=== PATIENT | male | born 1940 | race Caucasian/White ===

== ENCOUNTER 2016-05-04 12:19 | Emergency (ER) | payer OTHER, BC ==
[~2016-05-04] VITALS: Ht 172.7 cm; Wt 65.8 kg
--- NOTE | ~2016-05-04 | EKG ---
[address] [address] ELECTROCARDIOGRAM REPORT Name: SEMAUS ANG Room #: DEP COOPER Tang#: [id number] Admission: 05/04/16 Attend Phys: Discharge: 05/04/16 Date of : 44 Report #: [id number] THIS REPORT FOR: //name// [facility] ED Test Date: 2016-05-04 Test Time: 12:45:57 Pat Name: SEAMUS ANG Department: Room: Gender: Inbound Sales Consultant: [facility] : 1940 Requested By: Mark Klein Order Number: [id number] MD: Gutierrez Coreas Measurements Intervals [place] Rate: 58 P: 38 GA: 149 QRS: 25 QRSD: 101 T: 44 QT: 407 QTc: 400 Interpretive Statements Sinus rhythm No previous ECG available for comparison Electronically Signed On 05-04-2016 16:48:48 CHECKER AND PACKER by Gutierrez Coreas [email or web address] <ELECTRONICALLY SIGNED> By: Gutierrez Coreas MD 05/04/16 1648 1245 1245 Gutierrez Coreas MD /PARIS
[2016-05-04] MEDS ORDERED: LOW DOSE ASPIRI81 M1 PO (12:27)
[2016-05-04 12:54] LABS: ABSOLUTE NEUTROPHILS 6.5 thou/uL (1.4-8.2); BASOPHILS 0.8 % (0.0-2.0); EOSINOPHILS 1.9 % (0.0-3.0); HEMOGLOBIN 14.5 gm/dL (14.0-18.0); MCH 33.3 pg (26.0-34.0); MCHC 34.6 % (28.0-37.0); MCV 96.3 fL (80.0-100.0); MONOCYTES 6.8 % (1.0-8.0); PLATELET COUNT 190 thou/uL (150-400); POLYS 65.5 % (36.0-66.0); RBC 4.37 mil/uL (4.50-6.00); RDW 12.1 % (10.5-14.5); WBC 9.9 thou/uL (4.0-11.0)
[2016-05-04 12:56] LABS: MANUAL DIFF NO
[2016-05-04 13:05] LABS: ANION GAP 7 mmol/L (7-16); BUN 11 mg/dL (7-18); CALCIUM 9.2 mg/dL (8.5-10.1); CHLORIDE 103 mmol/L (98-107); CO2 30 mmol/L (21-32); CREATININE 1.1 mg/dL (0.6-1.3); GLUCOSE 122 mg/dL (70-99); POTASSIUM 4.1 mmol/L (3.5-5.1); SODIUM 140 mmol/L (136-145)
[2016-05-04 13:27] LABS: ALKALINE PHOSPHATASE 51 U/L (46-116); CK-MB MASS 4.3 ng/mL (<0.5-3.6); MAGNESIUM 2.1 mg/dL (1.8-2.4); NT-PRO BRAIN NAT PEPTIDE 36 pg/mL (<300); SGOT 18 U/L (15-37); SGPT 24 U/L (30-65); TOTAL BILIRUBIN 0.5 mg/dL (<0.1-1.0); TROPONIN-I < 0.04 ng/mL (<0.04-0.07)
[2016-05-04 14:17] VITALS: BP 142/76
== END 2016-05-04 14:17 | disposition home or self-care (01) ==
LOC: ER 12:19
PROVIDERS: Emergency Medicine
DX: S61.212A Laceration without foreign body of right middle finger without damage to nail, initial encounter (principal); R55 Syncope and collapse; Z88.2 Allergy status to sulfonamides; W17.89XA Other fall from one level to another, initial encounter; Y93.9 Activity, unspecified; Y92.9 Unspecified place or not applicable; Y99.9 Unspecified external cause status

== ENCOUNTER 2019-10-15 12:36 | Emergency (ER) | payer OTHER, BC ==
[~2019-10-15] VITALS: Ht 170.2 cm; Wt 70.3 kg
[~2019-10-15 12:36] MED LIST: LOW DOSE ASPIRI81 M1 PO
[2019-10-15 12:56] LABS: ABSOLUTE NEUTROPHILS 5.9 thou/uL (1.4-8.2); BASOPHILS 0.7 % (0.0-2.0); HEMATOCRIT 39.5 % (42.0-52.0); HEMOGLOBIN 13.6 gm/dL (14.0-18.0); LYMPHOCYTES 35.5 % (24.0-44.0); MCH 33.9 pg (26.0-34.0); MCHC 34.4 g/dL (28.0-37.0); MCV 98.5 fL (80.0-100.0); MONOCYTES 7.1 % (1.0-8.0); PLATELET COUNT 199 thou/uL (150-400); POLYS 53.7 % (36.0-66.0); RBC 4.01 mil/uL (4.50-6.00); RDW 12.7 % (10.5-14.5); WBC 11.1 thou/uL (4.0-11.0)
[2019-10-15 13:05] LABS: CALCIUM 9.3 mg/dL (8.5-10.1); POTASSIUM 3.8 mmol/L (3.5-5.1)
[2019-10-15 13:19] LABS: ALBUMIN 3.6 g/dL (3.4-5.0); TOTAL BILIRUBIN 0.4 mg/dL (0.2-1.0); TOTAL PROTEIN 6.4 g/dL (6.4-8.2)
[2019-10-15] MEDS ORDERED: ARICEPT10 MG PO (13:23)
[2019-10-15] MEDS ORDERED: RISPERIDONE2 MG PO (13:23)
[2019-10-15 13:32] LABS: URINE BILIRUBIN NEGATIVE (Negative); URINE BLOOD NEGATIVE (Negative); URINE CLARITY CLEAR; URINE COLOR YELLOW; URINE GLUCOSE-RANDOM* NEGATIVE (Negative); URINE KETONES NEGATIVE (Negative); URINE LEUKOCYTES-REFLEX NEGATIVE (Negative); URINE NITRITE-REFLEX NEGATIVE (Negative); URINE PROTEIN (DIPSTICK) NEGATIVE (Negative); URINE UROBILINOGEN 0.2 E.U./dl (0.2-1.0)
[2019-10-15 13:33] LABS: TROPONIN-I 0.06 ng/mL (<0.06)
[2019-10-15 15:40] VITALS: BP 121/62
--- NOTE | 2019-10-15 15:47 | EKG ---
[facility] [place] [address] ELECTROCARDIOGRAM REPORT Name: SEAMUS ANG Room #: DEP [facility]#: [id number] Admission: 10/15/19 Attend Phys: Discharge: 10/15/19 Date of : 44 Report #: [id number] THIS REPORT FOR: cc: FAM - Family physician unknown FAM - Family physician unknown Gutierrez Coreas MD ~ THIS REPORT FOR: //name// [facility] ED Test Date: 2019-10-15 Test Time: 12:48:08 Pat Name: SEMAUS ANG Department: Room: Gender: Car Seat Coverer: : 1940 Requested By: Radha Phillips Order Number: [id number] MD: Gutierrez Coreas Measurements Intervals [place] Rate: 75 P: 35 [place]: 140 QRS: 2 QRSD: 94 T: 40 QT: 381 QTc: 426 Interpretive Statements Sinus rhythm Low voltage, precordial leads Compared to ECG 05/04/2016 12:45:57 Low QRS voltage now present Electronically Signed On 10-15-2019 15:46:47 CDT by Gutierrez Coreas [email or web address] <ELECTRONICALLY SIGNED> By: Gutierrez Coreas MD 10/15/19 1546 1248 1248 Gutierrez Coreas MD /EPI
== END 2019-10-15 15:43 | disposition home or self-care (01) ==
LOC: ER 12:36
PROVIDERS: Physician Assistant
DX: I95.9 Hypotension, unspecified (principal); F03.90 Unspecified dementia, unspecified severity, without behavioral disturbance, psychotic disturbance, mood disturbance, and anxiety; Z79.82 Long term (current) use of aspirin; Z79.899 Other long term (current) drug therapy; Z88.2 Allergy status to sulfonamides

== ENCOUNTER 2019-10-25 18:13 | Emergency (ER) | payer OTHER, BC ==
[~2019-10-25] VITALS: Ht 175.3 cm; Wt 72.6 kg
[~2019-10-25 18:13] MED LIST changes: +ARICEPT10 MG PO; +RISPERIDONE2 MG PO
[2019-10-25 18:43] LABS: ABSOLUTE NEUTROPHILS 15.2 thou/uL (1.4-8.2); BASOPHILS 0.1 % (0.0-2.0); EOSINOPHILS 0.3 % (0.0-3.0); HEMATOCRIT 38.9 % (42.0-52.0); HEMOGLOBIN 13.3 gm/dL (14.0-18.0); LYMPHOCYTES 6.5 % (24.0-44.0); MCH 34.4 pg (26.0-34.0); MONOCYTES 6.4 % (1.0-8.0); PLATELET COUNT 142 thou/uL (150-400); POLYS 86.7 % (36.0-66.0); RBC 3.86 mil/uL (4.50-6.00); RDW 12.9 % (10.5-14.5); WBC 17.5 thou/uL (4.0-11.0)
[2019-10-25 18:46] LABS: ANION GAP 7 mmol/L (7-16); BUN 17 mg/dL (7-18); CALCIUM 7.2 mg/dL (8.5-10.1); CHLORIDE 106 mmol/L (98-107); CO2 24 mmol/L (21-32); CREATININE 0.6 mg/dL (0.7-1.3); GLUCOSE 101 mg/dL (74-106); POTASSIUM 3.8 mmol/L (3.5-5.1); SODIUM 137 mmol/L (136-145)
[2019-10-25 18:56] LABS: MAGNESIUM 1.4 mg/dL (1.8-2.4); SGOT 25 U/L (15-37); SGPT 18 U/L (30-65); TOTAL BILIRUBIN 0.4 mg/dL (0.2-1.0); TOTAL PROTEIN 5.7 g/dL (6.4-8.2); TROPONIN-I <0.06 ng/mL (<0.06)
[2019-10-25 19:04] VITALS: BP 158/74
[2019-10-25 19:04] LABS: URINE BILIRUBIN NEGATIVE (Negative); URINE BLOOD NEGATIVE (Negative); URINE CLARITY CLEAR; URINE COLOR YELLOW; URINE GLUCOSE-RANDOM* NEGATIVE (Negative); URINE KETONES NEGATIVE (Negative); URINE LEUKOCYTES-REFLEX NEGATIVE (Negative); URINE NITRITE-REFLEX NEGATIVE (Negative); URINE PROTEIN (DIPSTICK) NEGATIVE (Negative); URINE UROBILINOGEN 0.2 E.U./dl (0.2-1.0)
[2019-10-25] MEDS ORDERED: MAG-OXIDE400 MG PO (20:42)
--- NOTE | 2019-10-27 07:45 | EKG ---
[facility] [place] [address] ELECTROCARDIOGRAM REPORT Name: SEAMUS ANG Room #: DEP [facility].#: [id number] Admission: 10/25/19 Attend Phys: Discharge: 10/25/19 Date of : 44 Report #: [id number] THIS REPORT FOR: cc: Physician not on staff Physician not on staff Spike Hernandez MD [facility] ~ THIS REPORT FOR: //name// [facility] ED Test Date: 2019-10-25 Test Time: 18:41:12 Pat Name: SEAMUS ANG Department: Room: Gender: Technology Strategist: elise : 1940 Requested By: Mark Klein Order Number: [id number] MD: Spike Hernandez Measurements Intervals [place] Rate: 83 P: 57 [place]: 151 QRS: -2 QRSD: 91 T: 32 QT: 348 QTc: 409 Interpretive Statements Sinus rhythm Septal infarct, age indeterminate Compared to ECG 10/15/2019 12:48:08 No significant changes Electronically Signed On 10-27-2019 7:45:23 CDT by Spike Hernandez [email or web address] <ELECTRONICALLY SIGNED> By: Spike Hernandez MD, [facility] 10/27/19 0745 184 184 Sipke Hernandez MD, [facility] /EPI
== END 2019-10-25 21:35 | disposition home or self-care (01) ==
LOC: ER 18:13
PROVIDERS: Emergency Medicine
DX: S30.0XXA Contusion of lower back and pelvis, initial encounter (principal); S09.90XA Unspecified injury of head, initial encounter; R53.1 Weakness; E83.51 Hypocalcemia; E83.42 Hypomagnesemia; Z79.899 Other long term (current) drug therapy; Z88.2 Allergy status to sulfonamides; W17.89XA Other fall from one level to another, initial encounter; Y93.89 Activity, other specified; Y92.89 Other specified places as the place of occurrence of the external cause; Y99.8 Other external cause status

== ENCOUNTER 2020-02-19 13:54 | Emergency (ER) | payer OTHER, BC ==
[~2020-02-19] VITALS: Ht 177.8 cm; Wt 68.0 kg
[~2020-02-19 13:54] MED LIST changes: +MAG-OXIDE400 MG PO
[2020-02-19 13:55] VITALS: BP 128/64
[2020-02-19 15:07] LABS: HEMATOCRIT 37.3 % (42.0-52.0); HEMOGLOBIN 12.5 gm/dL (14.0-18.0); MCH 33.3 pg (26.0-34.0); MCHC 33.6 g/dL (28.0-37.0); MCV 99.2 fL (80.0-100.0); RBC 3.76 mil/uL (4.50-6.00); RDW 12.5 % (10.5-14.5); WBC 6.9 thou/uL (4.0-11.0)
[2020-02-19 15:11] LABS: CALCIUM 9.3 mg/dL (8.5-10.1); CREATININE 0.9 mg/dL (0.7-1.3); POTASSIUM 4.3 mmol/L (3.5-5.1)
[2020-02-19 15:20] LABS: MAGNESIUM 2.1 mg/dL (1.8-2.4); TROPONIN-I 0.06 ng/mL (<0.06)
--- NOTE | 2020-02-19 15:36 | EKG ---
[facility] [place] [address] ELECTROCARDIOGRAM REPORT Name: SEAMUS ANG Room #: REG [facility].#: [id number] Admission: 02/19/20 Attend Phys: Discharge: Date of : 44 Report #: [id number] THIS REPORT FOR: cc: CAROLANN FERRIS DO Physician not on staff Sarbjit Luciano MD [facility] ~ THIS REPORT FOR: //name// [facility] ED Test Date: 2020-02-19 Test Time: 14:40:58 Pat Name: SEAMUS ANG Department: Room: Gender: M Table Games Shift Manager: CHRISTELLE : 1940 Requested By: Anmol Quevedo Order Number: [id number] MD: Sarbjit Luciano Measurements Intervals [place] Rate: 65 P: 26 [place]: 174 QRS: 2 QRSD: 102 T: 33 QT: 410 QTc: 427 Interpretive Statements Sinus rhythm Low voltage, precordial leads Compared to ECG 10/25/2019 18:41:12 Low QRS voltage now present Electronically Signed On 02-19-2020 15:36:12 CDT by Sarbjit Luciano [email or web address] <ELECTRONICALLY SIGNED> By: Sarbjit Luciano MD, FACC 02/19/20 1536 1440 1440 Sarbjit Luciano MD, FAC /EPI
[2020-02-19 16:44] LABS: URINE BILIRUBIN NEGATIVE (Negative); URINE BLOOD NEGATIVE (Negative); URINE CLARITY SL CLOUDY; URINE COLOR YELLOW; URINE GLUCOSE-RANDOM* NEGATIVE (Negative); URINE KETONES NEGATIVE (Negative); URINE LEUKOCYTES-REFLEX NEGATIVE (Negative); URINE NITRITE-REFLEX NEGATIVE (Negative); URINE PROTEIN (DIPSTICK) NEGATIVE (Negative); URINE UROBILINOGEN 0.2 E.U./dl (0.2-1.0)
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
[2020-02-20 03:52] VITALS: BP 118/60
== END 2020-02-20 03:53 | disposition home or self-care (01) ==
LOC: ER 13:54 → EROBS 14:15 → ER 02-20 03:48 → SBH 02-20 03:48 → EROBS 02-20 03:52 → SBH 02-20 03:53 → EROBS 02-20 03:53
PROVIDERS: Emergency Medicine
DX: F03.90 Unspecified dementia, unspecified severity, without behavioral disturbance, psychotic disturbance, mood disturbance, and anxiety (principal); Z20.828 Contact with and (suspected) exposure to other viral communicable diseases; G30.9 Alzheimer's disease, unspecified; Z88.2 Allergy status to sulfonamides
CPT/HCPCS: 10880

== ENCOUNTER 2020-02-20 03:54 | Inpatient (IN) | payer OTHER, BC ==
[~2020-02-20] VITALS: Ht 177.8 cm; Wt 65.6 kg
[2020-02-20 04:00] VITALS: BP 166/89
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
[2020-02-20 09:03] VITALS: BP 139/69
--- NOTE | 2020-02-20 09:12 | NUR ---
ASSUMED CARE AT 0700 THIS MORNING. PT. STABLE. HE WAS IN BED WHEN SHIFT BEGAN. HIS WAS INCONTINENT OF BLADDER AND NEEDED CHANGED. EVERYTHING WAS EXPLAINED TO HIM BEFORE IT WAS DONE. NOT STRIKING OUT NOTED WHILE PERICARE WAS COMPLETED AND PT. GOTTEN UP TO THE W/C. HE WAS TAKENT TO THE DINING ROOM FOR BREAKFAST. HE KEPT REPLYING THAT HE DID NOT TAKE MEDICATIONS AND WOULD NOT TAKE ANY THIS MORNING. HIS MEDICATIONS WAS CRUSHED AND GIVEN TO HIM IN [place]. NO PROBLEMS NOTED WITH THAT. HE WAS NOT COORDINATED ENOUGH TO FEED HIMSELF AND REQUIRED HELP OF STAFF. HE ATE WELL. HE IS MAKING STATEMENTS ABOUT BEING UPSET WITH LOSS OF DECISION MAKING FOR HIMSELF. CALLED AND STATED THAT SHE NEEDS TO COME UP AND JAVA LEAD HER HE WILL NOT DO WELL HERE THEY HAVE NOT BEEN APART IN OVER 40 YEARS. SHE WAS ASSURED HE IS DOING ALRIGHT AT THIS TIME AND WAS OUT EATING BREAKFAST.WITH THAT SHE CALMED DOWN AND ASKED HOW LONG HE WOULD BE HERE. HER QUESTIONS WERE ANSWERED AND SHE SEEMED
[2020-02-20 10:51] VITALS: BP 139/69
[2020-02-20 19:20] VITALS: BP 134/82
--- NOTE | 2020-02-21 02:36 | NUR ---
Assumed care of pt @ 1900. Pt calm et cooperative this shift. No medication this shift. Ambulates with assistance of W/C. Socialized in dayroom with peers until HS. VSWNL. Health assessment with no abnormalities noted. Denies SI/HI/AVH at present time. Currently resting in bed with eyes closed. Will continue to monitor per unit protocol.
[2020-02-21 05:43] LABS: CALCIUM 9.1 mg/dL (8.5-10.1); MAGNESIUM 2.1 mg/dL (1.8-2.4); POTASSIUM 3.9 mmol/L (3.5-5.1)
[2020-02-21 06:07] LABS: FOLIC ACID 19.3 ng/mL (8.6-58.9); TSH 2.22 uIU/mL (0.358-3.740)
[2020-02-21 07:25] VITALS: BP 108/71
--- NOTE | 2020-02-21 12:50 | NUR ---
Assumed care of patient at 0700. Up in [facility] in day room. Pleasant. Oriented to person. Requires 2-3 person assist. Assisted witih meals. Takes medications whole in applesauce. Started to participate in group but was unable. Sat in the periphery. Strikes out when providing cares. Dr. Carrillo in to see. Straight cathed for 125 cc amparo urine. UA sent to lab. Has asked for .
--- NOTE | 2020-02-22 05:21 | NUR ---
Assumed care on 02/21/20 @ 19:15, seated in alpesh chair, answers when spoken to. A&Ox1 1/2 to person and own . When asked where he is, cannot state that it is a hospital, says, "its a place to go to sit". Uses a alpesh chair or W/C and x2-3 assist to transfer. DX: Major Neurocognitive Disorder with Behavior Disturbances. Pt has had increased falls, weakness and hallucinations, although the specific character of the hallucinations does not seem to be something that the patient can verbalize. Agitated this evening, however not agressive. X2-3 transfer from alpesh chair to bed, Incontinent of bladder. VS WNL, Headache pain level of 5/10, Tylenol provided, able to take meds whole with water. Slept in bed, eyes closed, respirations even and unlabored. Bed in low position, bed alarm set, will continue to monitor as per unit protocol.
[2020-02-22 05:32] VITALS: BP 139/80
[2020-02-22 07:20] LABS: CALCIUM 9.5 mg/dL (8.5-10.1)
--- NOTE | 2020-02-22 08:54 | NUR ---
ASSUMED CARE AT 0700 THIS MORNING. PT. IN BED, BUT CHANGED AND GOTTEN UP FOR HIS BREAKFAST. HE IS SITTING IN A RECLINING CHAIR. HIS MEDICATIONS WERE CRUSHED AND PLACED IN A PUDDING. HE ATE THIS WITHOUT PROBLEMS. HE WAS GIVEN BREAKFAST AFTER IS WAS WARMED UP BY STAFF. HE REQUIRES ASSISTANCE IN EATING HE IS NOT REAL COORDINATED WITH THE KNIFE, FORK OR SPOON.
[2020-02-22 09:00] VITALS: BP 137/74
[2020-02-22 11:18] VITALS: BP 137/74
[2020-02-22 19:39] VITALS: BP 122/68
--- NOTE | 2020-02-23 04:07 | NUR ---
Assumed care on 02/22/20 @ 19:15, Seated in alpesh chair in the [facility], Cooperated with assessment: HRRR, Lung sounds CTA bilat, ABD Nx4Q, High fall risk, transfers with x2-x3 assist. Choked on thin water when preparing to take meds. [place] thick beverage provided with crushed meds in ice cream. Drank most of beverage and ate most of ice cream, took only very very small bites. In bed with eyes closed, respirations even and unlabored, bed in low position, bed alarm set, will continue to monitor for safety and comfort.
[2020-02-23 04:35] VITALS: BP 122/68
--- NOTE | 2020-02-23 06:22 | NUR ---
slept 9.8 hours overnight.
[2020-02-23 07:28] VITALS: BP 143/72
[2020-02-23 10:42] VITALS: BP 143/72
--- NOTE | 2020-02-23 11:18 | NUR ---
ASSUMED CARE AT 0700 THIS MORNING. PT. IN BED, DENYING DESIRE TO GET UP FOR BREAKFAST. PT. LAYS MOTIONLOESS IN THE BED JUST STARRING INTO THE ROOM. HE SPEAKS VERY LITTLE AND WITH MUCH ENCOURAGEMENT. DR. YOUNG SAW THE PT. AND IS TALKING WITH DR. JEFFERSON ABOUT HIM. HE WAS CHANGED AND GOTTEN UP INTO THE RECLINING CHAIR. PT. GRABBED THIS RN'S ARM AND SAID, "PLEASE". HE WANTED TO REMAIN IN BED. IT WAS EXPLAINED TO HIM, NEED TO MOVE AND REASON FOR MOVING. HE WAS TAKEN TO THE DINNING ROOM WHERE HE FELL ASLEEP AGAIN. WHEN GIVEN HIS MORNING MEDICATIONS, HE WOULD NOT LET THEM GO INTO HIS MOUTH. THE PILL FELL ONTO HIS BLANKET. THEY WERE RETREIVED AND GIVEN TO HIM AGAIN. THIS TIIME HE TOOK THE MEDICATIONS AND SWALLOWED THEM.
[2020-02-23 11:34] LABS: ABSOLUTE NEUTROPHILS 7.3 thou/uL (1.4-8.2); BASOPHILS 1.3 % (0.0-2.0); EOSINOPHILS 0.6 % (0.0-3.0); HEMATOCRIT 39.6 % (42.0-52.0); HEMOGLOBIN 13.2 gm/dL (14.0-18.0); LYMPHOCYTES 17.1 % (24.0-44.0); MCH 33.1 pg (26.0-34.0); MCHC 33.4 g/dL (28.0-37.0); MCV 99.2 fL (80.0-100.0); MONOCYTES 6.8 % (1.0-8.0); PLATELET COUNT 188 thou/uL (150-400); POLYS 74.2 % (36.0-66.0); RBC 3.99 mil/uL (4.50-6.00); RDW 12.6 % (10.5-14.5); WBC 9.8 thou/uL (4.0-11.0)
[2020-02-23 11:45] LABS: CALCIUM 9.7 mg/dL (8.5-10.1); MAGNESIUM 2.3 mg/dL (1.8-2.4); PHOSPHORUS 3.9 mg/dL (2.5-4.9); POTASSIUM 4.4 mmol/L (3.5-5.1)
--- NOTE | 2020-02-23 13:32 | NUR ---
02/20/[address] Chester participated in a phone call with Pt's , Mariposa. Dr. Chester gave update on the Pt and informed Pt was in need of 24 hour care. Mariposa stated she takes care of the Pt and is able to care for him. Mariposa also stated that the Pt has had mulitple falls over the past few months and she has to watch hime eat his food because he chokes. Mariposa stated that Pt was dx with stage 6 Alzheimers by a nurologist at back in August 2019. Mariposa stated the Pt was given a medication to assist with hullucinations. She went on to state that the medication seemed to be helping up until recently. Mariposa stated she had to remove all the mirrors from her home because Pt would constantly talk to the mirror as if someone was there. Gerry asked if Mariposa was the DPOA. Mariposa voice became elevated and she asked " Well why do you need that and what is it". GERRY explained what DPOA was was and if she was able to fax or email the form. Mariposa stated she could have her daughter email it. GERRY provided Gerry email and Dr. Chester's email. 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 GERRY will continue to follow.
--- NOTE | 2020-02-23 14:33 | NUR ---
VASHTI and Dr. Dukes called Pt's , Mariposa, concerning recommendations for care at d/c. Dr. dukes informed his recommendation was LTC or 24 hr supervision in the home. Mariposa shouted, " No, I can take care of him, I want him discharged today". Mariposa talked about how she has always taken care of the Pt and she can continue to care for him. Dr. Ovalles informed that if Pt is d/c it will be AMA and offered to d/c Pt Sunday so that the Pt can get Hospice services set up in the home. Mariposa was tearful and handed the phone to her daughter, Sarah. Sarah again stated they want the Pt home and began to ask questions concerning the Pt's admission from ER. Sarah stated that the ER did not inform that the Pt was being admitted. SW not able of the answer to her concerns or question surrounding the family not being informed by the ER. Sarah also voiced concern that the family was unable talk to the Pt and was asked for a code when calling to check on the Pt. VASHTI offered the code to the family and informed that [facility] did not have DPOA paperwork from the family. VASHTI informed the paperwork was requested on Sunday during a phone call with Mariposa, but has not been recieved. Sarah asked for SW name, psychiatrist name, and PNEUMATIC TESTER MECHANIC name. This information was provided to Sarah. Sarah again ask what a DPOA was, VASHTI educated on this subject. Sarah stated they would be to pick the Pt up at 1 pm. VASHTI informed that was not enough time to have Pt ready and offered a 3pm time to pick pulling machine operator Pt. Monica agreed to pick pulling machine operator Pt at 3pm. Pt will be d/c home AMA as requested by Pt's , Mariposa and daughter Sarah. Mariposa stated she was the Pt's DPOA on 02/20/2020 via phone call.
--- NOTE | 2020-02-24 11:44 | NUR ---
VASHTI spoke with Mariposa so that she can obtain the agency providing hospice services, and provide an order. VASHTI was told by Mariposa that pt was assessed last night and deemed to not need these services. No other needs for SW team to address at this time. m
--- NOTE | 2020-02-24 22:05 | H ---
[facility] [place] [address] HISTORY AND PHYSICAL Name: SEAMUS ANG Room #: 520B-B DIS IN M.R.#: [id number] Admission: 02/20/20 Attend Phys: Jaydon Ovalles DO Discharge: 02/23/20 Date of : 44 Report #: [id number] THIS REPORT FOR: cc: Physician not on staff Physician not on staff Jaydon Ovalles DO ~ CC: Jaydon Ovalles Physician staff DATE OF SERVICE: 02/20/2020 INPATIENT PSYCHIATRIC EVALUATION ATTENDING PHYSICIAN: Jaydon Ovalles DO LICENSING SPECIALIST: I believe is Yasemin Londono as well as Odalis Carrillo MD, her collaborating hospitalist. The patient is a poor historian and I have left a voicemail for his , significant other, Mariposa, not heard back yet, so likely dictate an addendum. CHIEF COMPLAINT: Fall. HISTORY OF PRESENT ILLNESS: Reportedly, the patient fell yesterday and his family sent him to the Emergency Room due to increased weakness. He was evaluated by the hospitalist, Dr. Hoang, who found out from family he has been having hallucinations, visual and possible auditory and the patient was seeking out the unseen others and this was contributing to his fall. Therefore, I have accepted the patient as a psychiatric admission. Additional information is quite limited however. The nurse last night did get some more. The patient has had a 16-pound weight loss over the last 3 months. The patient resides with his at home. The falls, weakness, hallucinations as stated above, unknown type of hallucinations from the 's perspective apparently and this was unclear from the ER, but the nurse found out from the he does have a diagnosis of major neurocognitive disorder. The patient was opposed to admission. There was agitation, aggressiveness, hostility. He is incontinent of bladder. He is a total staff assist for kadeem care. Was not compliant with nursing assessment, last night. The patient made comments like none of your [employer] business, like I fucking care. Today, I interviewed the patient in the dining room. He is seated in wheelchair, lap pam in place. He stated he wanted to be with his . He did not know the day of the week or the month, he said it was 4 when I asked what was the month. The patient has a mask-like facies. There was mild cogwheeling in both biceps tendon and his left-sided palmomental reflex was abnormally positive. Tongue was midline. Myerson's was negative. The patient was not able to ambulate for me. The patient denies SI, HI, auditory or visual type hallucinations. Interestingly, I cannot find the [facility] [address] [place] [address] HISTORY AND PHYSICAL Name: SEAMUS ANG Room #: 520B-B DIS IN M.R.#: [id number] Admission: 02/20/20 Attend Phys: Jaydon Ovalles, Discharge: 02/23/20 Date of : 44 Report #: [id number] physical exam diagnosed in the ER, so I am not sure if it was omitted or patient was resistant. Chest x-ray was negative. Head CT revealed diffuse moderate cerebral atrophy and moderate chronic deep white matter changes, cavum septum pellucidum and calvarum as normal variant. It looks like there maybe a little more from Dr. Quevedo's assessment, which was not initially visible. PAST MEDICAL HISTORY: Includes Alzheimer's disease. I would question if he has Parkinson's disease versus Lewy body, parkinsonian variant. SURGICAL HISTORY: Cataract surgery, hernia repair. Reported medications, risperidone 2 mg p.o. daily, Aricept 10 mg p.o. daily. ALLERGIES: SULFA DRUGS. SOCIAL HISTORY: Denied tobacco use, alcohol use, recreational drug use. REVIEW OF SYSTEMS: As stated not obtainable. Weight 68.04 kilos. EKG done in the ER is as follows, ventricular rate 65, TN interval 174 milliseconds, QT 410 milliseconds, QTc 427 milliseconds. Low voltage in precordial leads, sinus rhythm. LABORATORY DATA: Laboratories done in the ER, hematology, H and H 12.5 and 37.3, white count 6.9, platelet count 176. Chemistries were grossly normal with sodium 144, potassium 4.3, chloride 104, bicarbonate 29, BUN 13, creatinine 0.9, estimated GFR 82, calcium 9.3, phosphorus 2.6, magnesium 2.1, AST 25, ALT 18, alkaline phosphatase 38. CK 132, CK-MB slightly high at 0.06, but no evidence of STEMI activity. PHYSICAL EXAMINATION: VITAL SIGNS: This morning, temperature 35.9, pulse 86, respirations 18, BP 139/69, O2 sat 98%. MUSCULOSKELETAL: Seated in wheelchair with a lap pam in place, weakness. Mask-like facies. Was positive cogwheeling at bilateral biceps tendons and palmomental reflex. MENTAL STATUS EXAMINATION: This is a well-developed, ill-appearing, older than stated age appearing male. Attention limited. Concentration limited. Speech slow, soft. Thought process is linear and goal directed with some delay. Thought content, wondering about life. Otherwise, poverty of thought. Psychomotor retardation with psychomotor agitation. Memory was not formally tested, but believed to be impaired. Insight impaired, judgment impaired. Fund of knowledge well below average. [facility] [address] [place] [address] HISTORY AND PHYSICAL Name: SEAMUS ANG Room #: 520B-B DIS IN M.R.#: [id number] Admission: 02/20/20 Attend Phys: Jaydon Ovalles DO Discharge: 02/23/20 Date of : 44 Report #: [id number] FORMULATION: A 79-year-old male presenting with unspecified hallucinations, recurrent falls, significant weight loss in the past 3 months. 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 PLAN: Evaluate, stabilize, obtain collateral. Waiting for call back from . Regarding the patient's hallucinations, I do not think the risperidone is almodovar given the potential for the parkinsonian component, would like to switch to Seroquel. I am going to try and hold off until I talk to the . If not, we will start him on a low dose for the weekend. Donepezil should probably be discontinued due to weight loss. Certainly, memantine could be started. Otherwise, we will see how the patient does over the weekend. Time spent on interview, review of records, coordination of care is at least 60 minutes. Greater than 50% time spent on counseling and coordination of care. STRENGTHS: He is insured, spousal support. WEAKNESSES: Advanced age, advanced disease, some of the coping skills. ADDENDUM: I actually called again his , it turns out that not just lifetime partner Mariposa Ang. Apparently, they have been for 3 years, but together 46 years, have several children together. Anyways collateral from the normal limits. Psychosocial chronic questions. He was initially born and raised in [place], moved to [facility] when he was 9 or 10. Raised by his mother. He left 11th grade 3 times in order to work. He went on to get his GED and worked in insurance sales for 25 years. PAST SURGICAL HISTORY: Includes 2 inguinal herniorrhaphies as well as cataract surgery. PHYSICAL PROBLEMS: No history of head injuries, seizures. No family psychiatric history other than his father who he was not that close who at age 97 about a year ago of dementia, but according to the , only had dementia his last few months. The patient had 5 other siblings. There were 3 boys and 3 girls total. One brother is . Additional information; hallucinations began in June of this year. They saw a doctor in [facility], she reports being neurologist, diagnosed with advanced Alzheimer's dementia. [address] [address] HISTORY AND PHYSICAL Name: SEAMUS ANG Room #: 520B-B DIS IN M.R.#: [id number] Admission: 02/20/20 Attend Phys: Jaydon Ovalles, DO Discharge: 02/23/20 Date of : 44 Report #: [id number] The risperidone and the Aricept were prescribed by the neurologist. They have worked pretty well and extinguished the hallucinations. Hallucinations were characterized as talking in the mirrors, seeing reflections of people other than himself. Right prior to this admission, the patient had a fantasy; he was on a boat and he was going to blowup. The patient has had some decline. He has not driven in 3 years. He retired when he was 71. Last managed his finances, made appointments and such when he was [age]. He has 3 children, 1 daughter is local in [place], [place]. Another daughter living in [place]. He has a son that was of diabetes mellitus and a cancer. The patient has 2 grandchildren; a boy and a girl. It sounds like they belonged to the daughter in May. Additionally, the reported she is interested in taking care of the patient at home. I think the was somewhat not understanding the situation that he is requiring multiple caregivers, so we are hoping she reconsiders. Apparently, she was advised by the neurologist he was on a global deterioration score of 6 and now he is pretty much 7. <ELECTRONICALLY SIGNED> By: Jaydon Ovalles DO 02/24/20 2205 1219 1255 Jaydon Ovalles DO /nt
--- NOTE | 2020-02-24 22:18 | D ---
[facility] [place] [address] DISCHARGE SUMMARY Name: SEAMUS ANG Room #: 520B-B DIS IN M.R.#: [id number] Admission: 02/20/20 Attend Phys: Jaydon Ovalles DO Discharge: 02/23/20 Date of : 44 Report #: [id number] THIS REPORT FOR: cc: Physician not on staff Physician not on staff Jaydon Ovalles DO ~ THIS REPORT FOR: //name// CC: Jaydon Ovalles Physician staff DATE OF SERVICE: 02/23/2020 Please note this was an against medical advice discharge requested by the patient's , Mariposa and daughter, Sarah. 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 Medical comorbidities include recurrent falls. 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 The patient is being discharged to his who was the presumptive DPOA, which she did not provide paperwork. No prescriptions or excuses given in accordance with against medical advice discharge. MEDICATIONS AT TIME OF DISCHARGE- no prescriptions given as AMA : Seroquel 37.5 mg p.o. 3 times a day, famotidine 20 mg p.o. daily, sodium bicarbonate 650 mg p.o. b.i.d. for total of 6 doses, ibuprofen 600 q. 6 p.r.n. LABORATORY DATA THIS ADMISSION: H and H 13.2 and 39.6, white count 9.8, platelet count 188. Chemistries: Sodium 144, potassium 4.4, chloride 106, bicarbonate 31, anion gap 7, BUN 21, creatinine 1.0, estimated GFR 72, calcium 9.7, phosphorus 3.9, magnesium 2.3. CK had been as high as 632 on 02/21/2020, down to 364 on 02/22/2020. B12 833, which is good. Folate 19, which is fair. TSH normal at 2.20. COVID-19 PCR serology on admission was negative. REASON FOR ADMISSION: Back on 02/20/2020, a 79-year-old male initially presented to the ER with weakness, hospitalist declined to admit him medically. He reportedly had been having hallucinations, visual and possible auditory that was leading him to fall from his residence, 16-pound weight loss reported over the past 3 months. HOSPITAL COURSE: The patient was admitted voluntarily by the [facility] as they showed basic understanding per the hospitalist. However, once on the unit, he was a complete care requiring feeding, continence care, etc. He was oriented to [address] [address] DISCHARGE SUMMARY Name: SEAMUS ANG Room #: 520B-B [facility] IN M.R.#: [id number] Admission: 02/20/20 Attend Phys: Jaydon Ovalles, Discharge: 02/23/20 Date of : 44 Report #: [id number] person. On the day of discharge, I called his with social services designee, Anna to follow up on placement concerns, voiced that she wanted him home right away if he is declining. I asked the to hold off a day to allow the hospice to be arranged for, get such things such as a hospital bed delivered, etc. The refused to wait. Given the situations and there were no signs of abuse or neglect, I elected to go ahead and discharge the patient against medical advice with the , assuming responsibility for the patient. CONDITION AT DISCHARGE: Stable. PHYSICAL EXAMINATION: VITAL SIGNS: On the day of discharge, temperature 36.4, pulse 74, respirations 16, BP 143/70, O2 sat 97%. MUSCULOSKELETAL: Seated in a Oanh chair, confused, lap pam in place. MENTAL STATUS EXAMINATION: This is a well-developed, ill, atrophy, unkempt-appearing male, appearing older than stated age. Attention limited. Concentration impaired. Speech soft, little slow. Thought process, very limited. Thought content, poverty of thought. Some psychomotor retardation and psychomotor agitation. Denied SI or HI, auditory, visual, or tactile hallucinations. Oriented to self only. Memory impaired, insight impaired, judgment impaired. Fund of knowledge well below average. PROGNOSIS: For this patient is guarded to poor given advanced dementia, requiring feeding. BMI 20.7. The patient left against medical advice. As the afternoon social services designee did ask me to write a note prescribing hospice care, I elected to do this to help the family as truly think Seamus will need hospice services as soon as possible. <ELECTRONICALLY SIGNED> By: Jaydon Ovalles DO 02/24/20 [id number] Jaydon Ovalles, /nt
== END 2020-02-23 15:15 | disposition home health service (06) | DRG 885 ==
LOC: SBH 03:54
PROVIDERS: Internal Medicine; ADMIT Psychiatry & Neurology Psychiatry; ATTEND Psychiatry & Neurology Psychiatry
DX: F29 Unspecified psychosis not due to a substance or known physiological condition (principal); F01.51 Vascular dementia, unspecified severity, with behavioral disturbance; E43 Unspecified severe protein-calorie malnutrition; M62.82 Rhabdomyolysis; E87.0 Hyperosmolality and hypernatremia; G30.9 Alzheimer's disease, unspecified; R77.8 Other specified abnormalities of plasma proteins; F02.80 Dementia in other diseases classified elsewhere, unspecified severity, without behavioral disturbance, psychotic disturbance, mood disturbance, and anxiety; I10 Essential (primary) hypertension; Z68.20 Body mass index [BMI] 20.0-20.9, adult; Z79.899 Other long term (current) drug therapy
CPT/HCPCS: 10880